=== PATIENT | male | born 1950 | race Caucasian/White ===

== ENCOUNTER 2020-03-04 03:34 | Emergency (ER) | payer BC, OTHER ==
[2020-03-04 03:42] VITALS: BP 145/77; PULSE 71; TEMP 98.1; BMI 25.7
[2020-03-04] MEDS ORDERED: CIPROFLOXACIN 500 MG TABLET (RESTRICTED TO ID) PO ONE (03:57)
[2020-03-04] MEDS ORDERED: CIPROFLOXACIN 250 MG TABLET (RESTRICTED TO ID) PO ONE (04:16)
== END 2020-03-04 04:33 | disposition home or self-care (01) ==
LOC: FER 03:34
DX: R33.9 Retention of urine, unspecified (principal)
CPT/HCPCS: 81003; 87086; 99283-25

== ENCOUNTER 2021-04-24 16:51 | Emergency (ER) | payer OTHER, BC ==
[2021-04-24] MEDS ORDERED: SODIUM CHLORIDE 0.9% 500 ML INFUS.BAG IV ONE (17:03)
[2021-04-24 17:06] VITALS: BP 152/88; PULSE 95; TEMP 99.9; BMI 25.7
[2021-04-24 18:29] LABS: BASO % 0.5 % (0-2.0); EOS % 2.4 % (0-4.5); HEMATOCRIT 34.4 % (35.4-49); HEMOGLOBIN 11.9 GM/dL (11.7-16.9); LYMPH % 6.7 % (8-40); MCH 30.8 pg (25.7-33.7); MCHC 34.6 g/dl (32.0-35.9); MEAN CELL VOLUME 88.9 fl (80-96); MEAN PLT VOLUME 6.4 fl (7.5-11.1); MONO % 7.8 % (3.8-10.2); NEUT % 82.6 % (42.8-82.8); PLATELET COUNT 278 10^3/uL (134-434); RBC 3.87 M/mm3 (4.00-5.60); WHITE BLOOD COUNT 7.1 K/mm3 (4.0-10.0)
[2021-04-24 18:45] LABS: ALBUMIN 3.4 g/dl (3.4-5.0); BILIRUBIN,TOTAL 0.6 mg/dL (0.2-1); BLOOD UREA NITROGEN 18.9 mg/dL (7-18); CALCIUM 8.6 mg/dL (8.5-10.1); CREATININE 0.9 mg/dL (0.55-1.3)
== END 2021-04-24 19:35 | disposition home or self-care (01) ==
LOC: FER 16:51 → SUPCPDRO 16:51 → FER 19:35
DX: R50.9 Fever, unspecified (principal)
CPT/HCPCS: 36415; 71046-TC-FY; 80053; 85025; 99284-25